=== PATIENT | female | born 1945 | race Caucasian/White ===

== ENCOUNTER 2017-07-24 07:56 | Day surgery (SDC) | payer MEDICARE, BC ==
[2017-07-24 08:41] LABS: BASOPHILS 0.1 % (0-2); EOSINOPHILS 0.1 % (0-7); HEMATOCRIT 45.9 % (36.0-48.0); HEMOGLOBIN 15.6 g/dL (12-16); IMMATURE GRANULOCYTES 0.6 % (0-5); LYMPHOCYTES 20.9 % (15-50); MCH 29.5 pg (26.0-34.0); MCV 86.8 fL (80.0-100.0); MEAN PLATELET VOLUME 10.8 fL (7.4-10.4); MONOCYTES 8.3 % (2-11); PLATELET COUNT 219 10x3/uL (130-400); RBC 5.29 10x6/uL (4.00-5.40); WBC 12.5 10x3/uL (4.8-10.8)
[2017-07-24 08:58] LABS: ANION GAP 13.5 mmol/L (8-16); CALCIUM 9.4 mg/dL (8.5-10.1); CARBON DIOXIDE 25.6 mmol/L (21.0-32.0); CREATININE - SERUM 1.3 mg/dL (0.6-1.3); POTASSIUM - SERUM 4.1 mmol/L (3.5-5.1)
[2017-07-24] MEDS ORDERED: NEXIUM20 MG PO (09:25)
[2017-07-24] MEDS ORDERED: PROPRANOLOL HCL20 MG PO (09:26)
[2017-07-24] MEDS ORDERED: VITAMIN D31000 UNI2 PO (09:26)
[2017-07-24] MEDS ORDERED: NATURE-THROID32.4 MG PO (09:27)
[2017-07-24] MEDS ORDERED: VITAMIN B-122500 MCG PO (09:27)
[2017-07-24 09:30] VITALS: BP 108/62; BMI 51.1
--- NOTE | 2017-07-24 12:59 | NUR ---
IV D/C'D CATH INTACT.
--- NOTE | 2017-07-24 13:07 | NUR ---
D/C INSTRUCTIONS EXPLAINED TO PT. VOICED UNDERSTANDING. COPIES OF ALL GIVEN TO PT.
--- NOTE | 2017-07-24 13:11 | NUR ---
D/C'D HOME VIA W/C TO PRIVATE CAR.
--- NOTE | 2017-08-02 14:40 | OP ---
PATIENT NAME: NASRA OSBORN MEDICAL RECORD: [id number] :49 LOCATION:D[facility] ADMISSION DATE: SURGEON: EMA WHITT DO DATE OF OPERATION: 07/24/2017 PROCEDURE: Colonoscopy with polypectomy. INDICATIONS FOR PROCEDURE: Screening for colorectal cancer and history of chronic constipation. SCOPE: Chlorogen video pediatric colonoscope. MEDICATIONS: Propofol 650 mg IV per anesthesia. WITHDRAWAL TIME: 21 minutes. ESTIMATED BLOOD LOSS: Minimal. COMPLICATIONS: None. FINDINGS: Informed consent was given. DESCRIPTION OF PROCEDURE: The patient was made comfortable with the above medication. After reaching an adequate level of sedation by slow IV push, the patient was placed on her left side. A digital rectal examination was performed, which revealed external hemorrhoids, which were not bleeding. The endoscope was then advanced under direct visualization through the rectum, to the cecum with visualization of the appendiceal orifice. The scope was slowly withdrawn and mucosa was carefully examined. The prep quality was fair. There were areas in the right colon, which were hard to irrigate to see the colonic wall, but there were no large polyps and definitely no masses. In the transverse colon, there were 2 polyps which were benign-appearing and sessile. They were both removed using hot forceps in 1 piece and completely retrieved. In the descending colon, there were 2 more polyps, which were benign-appearing and sessile. There were ranging in size from 3-4 mm in diameter. Both were removed using hot forceps in 1 piece and completely retrieved. In the rectum, there were 3 separate polyps. They are benign appearing and sessile, ranging in size from 5-7 or 8 mm in diameter. They were all removed using hot snare in 1 piece and completely retrieved. Retroflexion was performed in the rectum with visualization of small nonbleeding internal hemorrhoids. In the sigmoid colon, there were small diverticula consistent with mild diverticulosis. There was no evidence of diverticulitis. The endoscope was withdrawn from the patient. The patient tolerated the procedure well and there were no complications. IMPRESSION: 1. Multiple polyps as described above, removed using hot forceps and hot snare technique. 2. Mild diverticulosis of the sigmoid colon. 3. Internal and external hemorrhoids, which were not bleeding. PLAN AND RECOMMENDATIONS: 1. Discharge home when recovery parameters are met. 2. High fiber diet. 3. Continue current medications. 4. Recall colonoscopy in 2 years. OPERATIVE REPORT [id number] NASRA OSBORN 5. If the constipation becomes problematic for the patient, I will offer assistance with medications. In the meantime, we have agreed to increase her fiber intake with Metamucil or Equate fiber supplementation 2 tablespoons daily. TRANSINT:[id number] Voice Confirmation ID: [id number] DOCUMENT ID: [id number] EMA WHITT DO at 1440 CC: [id number] DICTATION DATE: 07/24/17 1213 DIRECTOR OF LABORATORY OPERATIONS: 07/24/17 1345 [facility] 07/24/17 [facility] [address] [place] [address]
== END 2017-07-24 13:15 | disposition home or self-care (01) ==
LOC: D.OPS 07:56
PROVIDERS: Anesthesiology
DX: Z12.11 Encounter for screening for malignant neoplasm of colon (principal); I10 Essential (primary) hypertension; E03.9 Hypothyroidism, unspecified; K21.9 Gastro-esophageal reflux disease without esophagitis; K64.4 Residual hemorrhoidal skin tags; K64.8 Other hemorrhoids; K57.30 Diverticulosis of large intestine without perforation or abscess without bleeding; K63.5 Polyp of colon; K62.1 Rectal polyp; Z01.812 Encounter for preprocedural laboratory examination